=== PATIENT | male | born 1955 | race Caucasian/White ===

== ENCOUNTER 2016-03-04 14:21 | Emergency (ER) | payer OTHER ==
[~2016-03-04] VITALS: Ht 152.4 cm; Wt 65.0 kg
[~2016-03-04 14:21] MED LIST: CARAS PO; IBUP800T25 PO; LEVE-5 PO; METO10TA96 PO; PANT40TA4 PO
[2016-03-04 14:30] VITALS: Ht 152.4 cm; Wt 65.0 kg
[2016-03-04] MEDS ORDERED: FLUORESCEIN STRIP BOTH EYES ONE (15:30)
[2016-03-04] MEDS ORDERED: HYDROCODONE/APAP (10/325) TAB PO ONE (16:00)
[2016-03-04] MEDS ORDERED: ULT50 PO (16:27)
[2016-03-04] MEDS ORDERED: CETI5TAB20 PO (16:27)
[2016-03-04] MEDS ORDERED: VIGA BOTH EYES (16:27)
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
== END 2016-03-04 17:02 | disposition home or self-care (01) ==
LOC: FTE 14:21
DX: H57.8 Other specified disorders of eye and adnexa (principal); K14.0 Glossitis; Z87.891 Personal history of nicotine dependence
CPT/HCPCS: Z7610 ×2; 99284

== ENCOUNTER 2016-05-07 14:40 | Emergency (ER) | payer OTHER ==
[~2016-05-07] VITALS: Ht 167.6 cm; Wt 64.5 kg
[~2016-05-07 14:40] MED LIST changes: +CETI5TAB20 PO; +TRAM50TA2 PO; +VIGA BOTH EYES
[2016-05-07 14:47] VITALS: Ht 167.6 cm; Wt 64.5 kg
[2016-05-07] MEDS ORDERED: LIDO20SO19 MM (16:55)
[2016-05-07] MEDS ORDERED: IBUP400T22 PO (16:56)
[2016-05-07] MEDS ORDERED: BEN25 PO (16:56)
--- NOTE | 2016-05-07 17:00 | ERD ---
ER Documentation Chief Complaint Date/Time DATE: 05/07/16 TIME: 16:58 Chief Complaint MOUTH AND TONGUE SORE,DIFFICULTY SWALLOWING HPI This 60-year-old male complains of a sore on the left side of his tongue for the last week. He also has an itchy rash. Denies fevers, cough, shortness breath or chest pain. Denies tobacco use last alcohol use was 2 weeks ago. ROS All systems reviewed and are negative except as per history of present illness. Medications Home Meds Active Scripts Ibuprofen* (Motrin*) 400 Mg Tab, 400 MG PO Q6, #15 TAB Prov:DAO PIERCE MD 05/07/16 Diphenhydramine Hcl* (Benadryl*) 25 Mg Cap, 25 MG PO Q6, #15 CAP Prov:DAO PIERCE MD 05/07/16 Lidocaine (Lidocaine Viscous) 100 Ml Soln, 100 ML MM QID for 5 Days Prov:DAO PIERCE MD 05/07/16 Cetirizine Hcl* (Cetirizine Hcl*) 5 Mg Tablet, 5 MG PO DAILY, #14 TAB Prov:GOLD GARCIA PA-C 03/04/16 Tramadol HCl (Tramadol HCl) 50 Mg Tablet, 50 MG PO Q4 Y for PAIN, #20 TAB Prov:GOLD GARCIA PA-C 03/04/16 Moxifloxacin Hcl* (Vigamox*) 0.5% - 3 Ml Opht, 1 DROP BOTH EYES TID, #1 EA Prov:GOLD GARCIA PA-C 03/04/16 Ibuprofen* (Motrin*) 800 Mg Tab, 800 MG PO Q6H Y for PAIN AND OR ELEVATED TEMP, #30 TAB Prov:ANA BURNS MD 11/14/15 Levetiracetam* (Keppra*) 500 Mg Tablet, 500 MG PO BID for 30 Days, TAB 3 Refills Prov:AGGIE ZAMORA S. 10/04/15 Sucralfate* (Carafate*) 1 Gm/10 Ml Susp, 1 GM PO QID for 30 Days, 3 Refills Prov:AGGIE ZAMORA S. 10/04/15 Pantoprazole* (Pantoprazole*) 40 Mg Tablet.dr, 40 MG PO BID@ for 30 Days, 3 Refills Prov:AGGIE ZAMORA S. 10/04/15 Metoclopramide Hcl* (Metoclopramide Hcl*) 10 Mg Tablet, 10 MG PO AC MEALS for 30 Days, TAB 3 Refills Prov:AGGIE ZAMORA S. 10/04/15 Allergies Allergies: Coded Allergies: No Known Allergy (Unverified , 03/04/16) PMhx/Soc Medical and Surgical Hx: pt denies Surgical Hx History of Surgery: No Anesthesia Reaction: No Hx Neurological Disorder: No Hx Respiratory Disorders: No Hx Cardiac Disorders: No Hx Psychiatric Problems: Yes (depression) Hx Miscellaneous Medical Probl: No Hx Alcohol Use: Yes (drinks alcohol) Hx Substance Use: Yes (COCAINE) Hx Tobacco Use: Yes (previous smoker) Smoking Status: Former smoker Physical Exam Vitals Vital Signs Date Time Temp Pulse Resp B/P Pulse Ox O2 Delivery O2 Flow Rate FiO2 05/07/16 14:47 98.2 78 18 158/76 98 Physical Exam Const: [] Alert, ufc-bba-yjuhynhoi Head: Atraumatic Eyes: Normal Conjunctiva ENT: Normal External Ears, Nose and Mouth. There is a large aphthous ulcer on the lateral aspect the left side of his tongue. Airway is otherwise patent. Neck: Full range of motion..~ No meningismus. Resp: Clear to auscultation bilaterally Cardio: Regular rate and rhythm, no murmurs Abd: Soft, non tender, non distended. Normal bowel sounds Skin: No petechiae or purpura. There is a slight excoriated areas of wheals on the abdomen and a few X-rated papules on extremities. There is no warmth, erythema, induration or streaking or vesicles per Back: No midline or flank tenderness Ext: No cyanosis, or edema Neur: Awake and alert Psych: Normal Mood and Affect Procedures/MDM Patient presents with signs and symptoms of a acute aphthous ulcer on the left side of his tongue. He also has unspecified dermatitis or wheel type lesions. There is a may have a viral exanthem. No signs or symptoms to suggest life- threatening rashes, anaphylaxis, significant cellulitis or any other emergent causes of rash or aphthous ulcers. Patient is advised to see ENT for further evaluation for persistent oral lesions greater than 1-2 more weeks but otherwise is allow the next week to for a viral illness to resolve. He will be treated with Benadryl, ibuprofen and Viscous Lidocaine topically first time Departure Diagnosis: Primary Impression: Dermatitis Additional Impression: Acute pain of mouth Condition: Stable Patient Instructions: Aphthous Ulcer, Dermatitis, Non-Specific Referrals: NESHA COTTO MD,LAURA Landry MD Additional Instructions: Va al monzon doctor/ specialista para mas evaluacon PARA SYMPTOMAS MAS QUE UN O DOS semana MAS. posiblemente necesita autorizado de monzon doctor primario para specialista. Regresa para fiebre, o mas o nueva simptomas. DAO PIERCE MD May 07, 2016 17:00
[2016-05-07 17:16] VITALS: BP 138/74; PULSE 86; RESP 20; TEMP 98.3
== END 2016-05-07 17:17 | disposition home or self-care (01) ==
LOC: FTE 14:40
DX: L30.9 Dermatitis, unspecified (principal); Z87.891 Personal history of nicotine dependence
CPT/HCPCS: 99283

== ENCOUNTER 2016-05-10 16:22 | Emergency (ER) | payer OTHER ==
[~2016-05-10] VITALS: Ht 157.5 cm; Wt 65.0 kg
[~2016-05-10 16:22] MED LIST changes: +BEN25 PO; +IBUP400T22 PO; +LIDO20SO19 MM
[2016-05-10 16:25] VITALS: Ht 157.5 cm; Wt 65.0 kg
[2016-05-10] MEDS ORDERED: IBUP400T22 PO (17:31)
[2016-05-10] MEDS ORDERED: ORA20G7 BUCCAL (17:31)
--- NOTE | 2016-05-10 22:35 | ERD ---
ER Documentation Chief Complaint Date/Time DATE: 05/10/16 TIME: 22:33 Chief Complaint Complains of mouth sores HPI This is a 60-year-old male with a history of alcohol abuse presenting to the emergency room complaining of mouth ulcers for the past week. Patient states that he has been seen here 4 days ago and received ibuprofen however he states it is not resolving. Patient denies any fevers. Denies any other conditions ROS All systems reviewed and are negative except as per history of present illness. Medications Home Meds Active Scripts Benzocaine* (Orajel Maximum*) 1 Applic Gel, 1 APPLIC BUCCAL BID, #1 TUB Prov:KYLAH GARCIA PA-C 05/10/16 Ibuprofen* (Ibuprofen*) 400 Mg Tablet, 400 MG PO Q6H Y for PAIN, #30 TAB Prov:KYLAH GARCIA PA-C 05/10/16 Ibuprofen* (Motrin*) 400 Mg Tab, 400 MG PO Q6, #15 TAB Prov:DAO PIERCE MD 05/07/16 Diphenhydramine Hcl* (Benadryl*) 25 Mg Cap, 25 MG PO Q6, #15 CAP Prov:DAO PIERCE MD 05/07/16 Lidocaine (Lidocaine Viscous) 100 Ml Soln, 100 ML MM QID for 5 Days Prov:DAO PIERCE MD 05/07/16 Cetirizine Hcl* (Cetirizine Hcl*) 5 Mg Tablet, 5 MG PO DAILY, #14 TAB Prov:GOLD GARCIA PA-C 03/04/16 Tramadol HCl (Tramadol HCl) 50 Mg Tablet, 50 MG PO Q4 Y for PAIN, #20 TAB Prov:GOLD GARCIA PA-C 03/04/16 Moxifloxacin Hcl* (Vigamox*) 0.5% - 3 Ml Opht, 1 DROP BOTH EYES TID, #1 EA Prov:GOLD GARCIA PA-C 03/04/16 Ibuprofen* (Motrin*) 800 Mg Tab, 800 MG PO Q6H Y for PAIN AND OR ELEVATED TEMP, #30 TAB Prov:ANA BURNS MD 11/14/15 Levetiracetam* (Keppra*) 500 Mg Tablet, 500 MG PO BID for 30 Days, TAB 3 Refills Prov:AGGIE ZAMORA S. 10/04/15 Sucralfate* (Carafate*) 1 Gm/10 Ml Susp, 1 GM PO QID for 30 Days, 3 Refills Prov:AGGIE ZAMORA S. 10/04/15 Pantoprazole* (Pantoprazole*) 40 Mg Tablet.dr, 40 MG PO BID@06,18 for 30 Days, 3 Refills Prov:AGGIE ZAMORA S. 10/04/15 Metoclopramide Hcl* (Metoclopramide Hcl*) 10 Mg Tablet, 10 MG PO AC MEALS for 30 Days, TAB 3 Refills Prov:AGGIE ZAMORA S. 10/04/15 Allergies Allergies: Coded Allergies: No Known Allergy (Unverified , 03/04/16) PMhx/Soc History of Surgery: No Anesthesia Reaction: No Hx Neurological Disorder: No Hx Respiratory Disorders: No Hx Cardiac Disorders: No Hx Psychiatric Problems: Yes (depression) Hx Miscellaneous Medical Probl: No Hx Alcohol Use: Yes (drinks alcohol) Hx Substance Use: Yes (COCAINE) Hx Tobacco Use: Yes (previous smoker) Smoking Status: Current every day smoker Physical Exam Vitals Vital Signs Date Time Temp Pulse Resp B/P Pulse Ox O2 Delivery O2 Flow Rate FiO2 05/10/16 16:25 97.8 72 20 143/84 100 Physical Exam Const: [] Well-developed well-nourished no acute distress Head: Atraumatic Eyes: Normal Conjunctiva ENT: Normal External Ears, Nose and Multiple aphthous ulcers Neck: Full range of motion..~ No meningismus. Resp: Clear to auscultation bilaterally Cardio: Regular rate and rhythm, no murmurs Abd: Soft, non tender, non distended. Normal bowel sounds Skin: No petechiae or rashes Back: No midline or flank tenderness Ext: No cyanosis, or edema Neur: Awake and alert Psych: Normal Mood and Affect Procedures/MDM This is a 6-year-old male presenting to the emergency department complaining of mouth sores that are most consistent with aphthous ulcers for the past week, patient was here 4 days ago for the same complaint. I discussed with patient that the apthous ulcers do not heal quickly. I discussed to continue the ibuprofen and discussed lidocaine/ora-jel. I discussed the patient to follow- up with a dentist for further action management. Discussed return the ER for any worsening signs or symptoms. Patient understands and agrees with plan Departure Diagnosis: Primary Impression: Sore in mouth Condition: Stable Patient Instructions: When Your Child Has Mouth Sores, Tmj Syndrome Referrals: DOCTOR,NOT ON STAFF [facility] ([facility]) Usted se latham hecho un examen mdico de control que le indica que no est en fidel condicin que requiera tratamiento urgente en el Departamento de Emergencia. Un estudio ms profundo y el tratamiento de monzon condicin pueden esperar sin ningn riesgo hasta que usted sea atendida/o en el consultorio de monzon mdico o fidel cl lizzeth. Es responsabilidad suya arreglar fidel rosa elena para el seguimiento del juele. MANEJO DE CONDICIONES NO URGENTES EN EL FUTURO 1) Si usted tiene un mdico de atencin primaria: Usted debera llamar a monzon mdico de atencin primaria antes de venir al departamento de emergencia. Despus de las horas de consultorio, monzon doctor o monzon asociado/a est disponible por telfono. El mdico o enfermero de bert en el servicio telefnico puede asesorarle por kishan medio para atender el problema, o julee contrario se puede programar fidel rosa elena. 2) Si usted no tiene un mdico de atencin primaria: Llame al mdico o clnica de referencia que aparece abajo rossy las horas de consultorio para hacer fidel rosa elena para que le vean. CLINICAS: [facility] 655 [phone] [address] [facility] [phone] [address] [facility] [phone] [address] [facility] 132 [phone] [address] [facility] 580 [phone] [address] [facility] [phone] [place] [facility] ([facility] walk in clinic) Additional Instructions: Visite a monzon sharath hampton para un EXAMEN.Regrese a estas instalaciones si no se mejora miriam esperbamos o miriam le dijimos. [place] toda la medicina lilliana y miriam se le indic. Regrese a estas instalaciones si no se mejora miriam esperbamos o miriam le dijimos. KYLAH GARCIA PA-C May 10, 2016 22:35
== END 2016-05-10 18:03 | disposition home or self-care (01) ==
LOC: FTE 16:22
DX: K13.79 Other lesions of oral mucosa (principal); F17.210 Nicotine dependence, cigarettes, uncomplicated
CPT/HCPCS: 99283

== ENCOUNTER 2016-07-14 23:06 | Emergency (ER) | payer BC, OTHER ==
[~2016-07-14] VITALS: Ht 157.5 cm; Wt 61.3 kg
[~2016-07-14 23:06] MED LIST changes: +ORA20G7 BUCCAL
[2016-07-14 23:17] VITALS: Ht 157.5 cm; Wt 61.3 kg
--- NOTE | 2016-07-15 01:32 | ERD ---
ER Documentation Chief Complaint Date/Time DATE: 07/15/16 TIME: 01: Chief Complaint GLORIA. EYE PAIN AND TINGLING W/ REDNESS X1 HR. BIB RA 881 HPI Patient is complaining of bilateral eye pain and irritation with itchiness and redness. Also states he has had some purulent drainage. Denies any visual changes. Denies being diabetic. This is been going on for just an hour. Denies any pain with eye movement. Denies fever. Denies cough. ROS All systems reviewed and are negative except as per history of present illness. Medications Home Meds Active Scripts Erythromycin* (Erythromycin* Ophthalmic) 1 Applic Oint, 1 APPLIC BOTH EYES QID for 7 Days, EA Prov:ASAD LESLIE PA-C 07/15/16 Benzocaine* (Orajel Maximum*) 1 Applic Gel, 1 APPLIC BUCCAL BID, #1 TUB Prov:KYLAH GARCIA PA-C 05/10/16 Ibuprofen* (Ibuprofen*) 400 Mg Tablet, 400 MG PO Q6H Y for PAIN, #30 TAB Prov:KYLAH GARCIA PA-C 05/10/16 Ibuprofen* (Motrin*) 400 Mg Tab, 400 MG PO Q6, #15 TAB Prov:DAO PIERCE MD 05/07/16 Diphenhydramine Hcl* (Benadryl*) 25 Mg Cap, 25 MG PO Q6, #15 CAP Prov:DAO PIERCE MD 05/07/16 Lidocaine (Lidocaine Viscous) 100 Ml Soln, 100 ML MM QID for 5 Days Prov:DAO PIERCE MD 05/07/16 Cetirizine Hcl* (Cetirizine Hcl*) 5 Mg Tablet, 5 MG PO DAILY, #14 TAB Prov:GOLD GARCIA PA-C 03/04/16 Tramadol HCl (Tramadol HCl) 50 Mg Tablet, 50 MG PO Q4 Y for PAIN, #20 TAB Prov:GOLD GACRIA PA-C 03/04/16 Moxifloxacin Hcl* (Vigamox*) 0.5% - 3 Ml Opht, 1 DROP BOTH EYES TID, #1 EA Prov:GOLD GARCIA PA-C 03/04/16 Ibuprofen* (Motrin*) 800 Mg Tab, 800 MG PO Q6H Y for PAIN AND OR ELEVATED TEMP, #30 TAB Prov:ANA BURNS MD 11/14/15 Levetiracetam* (Keppra*) 500 Mg Tablet, 500 MG PO BID for 30 Days, TAB 3 Refills Prov:DENGAGGIE S. 10/04/15 Sucralfate* (Carafate*) 1 Gm/10 Ml Susp, 1 GM PO QID for 30 Days, 3 Refills Prov:SERAAGGIE S. 10/04/15 Pantoprazole* (Pantoprazole*) 40 Mg Tablet.dr, 40 MG PO BID@,18 for 30 Days, 3 Refills Prov:SERAAGGIE S. 10/04/15 Metoclopramide Hcl* (Metoclopramide Hcl*) 10 Mg Tablet, 10 MG PO AC MEALS for 30 Days, TAB 3 Refills Prov:JEFF ZAMORAP S. 10/04/15 Allergies Allergies: Coded Allergies: No Known Allergy (Unverified , 03/04/16) PMhx/Soc History of Surgery: No Anesthesia Reaction: No Hx Neurological Disorder: No Hx Respiratory Disorders: No Hx Cardiac Disorders: No Hx Psychiatric Problems: Yes (depression) Hx Miscellaneous Medical Probl: No Hx Alcohol Use: Yes (drinks alcohol) Hx Substance Use: Yes (COCAINE) Hx Tobacco Use: Yes (previous smoker) Physical Exam Vitals Vital Signs Date Time Temp Pulse Resp B/P Pulse Ox O2 Delivery O2 Flow Rate FiO2 07/14/16 23:17 98.0 85 20 137/84 98 Physical Exam General: well developed, well nourished, alert, nontoxic, no distress Head: normocephalic, atraumatic Eyes: PERRL, normal conjunctiva, extraocular movements intact Neck: Supple, nontender, no lymphadenopathy, no midline tenderness Oropharynx: no tonsilar erythema or edema, uvula midline, no exudates, no kissing tonsils, no drooling Respiratory: Clear to auscaultation bilaterally, speaks in full sentences, no use of accesory muscles or labored breathing, no rales, ronchi, or wheezing Cardiovascular: RRR, No murmurs Procedures/MDM Patient is nondiabetic. Vital signs are within normal limits. Patient presents with eye twitching and irritation with itchiness in the bilateral eyes and also states he has had some purulent drainage from the eye and redness in his bilateral eyes. Low suspicion for ruptured globe, retinal detachment, acute angle closure glaucoma, deep space infection, iritis, traumatic hyphema, conjunctivitis, subconjunctival hemorrhage, corneal abrasion, infectious keratitis, corneal ulcer, pterygium, superficial keratitis, hypopyon, blepharitis, episcleritis, hordeolum, chalazion, or other emergent conditions. Patient discharged with outpatient ophthalmology follow-up and erythromycin ophthalmic ointment. Recommended this patient follow up with her primary care doctor within 48 hours or return to the emergency room for any worsening of symptoms. However this time I do believe there is suitable for outpatient management. I answered all their questions and they agreed with the plan and were discharged home. Departure Diagnosis: Primary Impression: Eye problem Condition: Stable ASAD LESLIE PA-C July 15, 2016 01:32
[2016-07-15] MEDS ORDERED: ERYTOPOI BOTH EYES (01:42)
== END 2016-07-15 03:06 | disposition home or self-care (01) ==
LOC: FTE 23:06
DX: H57.13 Ocular pain, bilateral (principal)
CPT/HCPCS: 99283

== ENCOUNTER 2016-07-29 03:33 | Emergency (ER) | payer BC ==
[~2016-07-29] VITALS: Ht 162.6 cm; Wt 55.0 kg
[~2016-07-29 03:33] MED LIST changes: +ERYTOPOI BOTH EYES
[2016-07-29 03:38] VITALS: Ht 162.6 cm; Wt 55.0 kg
[2016-07-29 04:20] LABS: ADD SCAN DIFF NO
--- NOTE | 2016-07-29 04:36 | RADRPT ---
PROCEDURE: CT BRAIN WITHOUT CONTRAST CLINICAL INDICATION: 60-year-old male with headaches. TECHNIQUE: The study was performed utilizing [employer] VCT 64-slice CT scanner. Direct axial sections were obtained from the foramen magnum to the vertex without the use of intravenous contrast material. Sagittal and coronal reformations were obtained. Sagittal and coronal reformations were obtained. One or more the following dose reduction techniques were utilized: automated exposure cont rol, adjustment of the mA and/or kV according to patient's size or use of iterative reconstruction t echnique. The images were viewed on a PACS workstation. CTD/vol = 44.8 mGy; Total Exam DLP = 720.2 mGy-cm. COMPARISON: CT brain November 14, 2015. FINDINGS: There has been a prior right frontal craniotomy. There is mild focal underlying right temporal, rig ht frontal and right parietal encephalomalacia as previously visualized. There is apgv-ih-jssorpmh prominence of the sulci and cisternal spaces consistent with volume loss with compensatory ventricul ar enlargement. The ventricular configuration is without significant interval change. There is no e vidence for mass effect or midline shift. There are periventricular and deep white matter areas of decreased density consistent with microangiopathic ischemic changes. There is a small old lacunar in farct within the right basal ganglia. There is no evidence for acute intra or extra-axial blood. The partially visualized paranasal sinuses and mastoid air cells are without significant abnormal soft tissue. IMPRESSION: 1. Status post right frontal craniotomy with underlying focal right temporal, frontal and parietal encephalomalacia without significant interval change. 2. Pvxi-cq-ckmkfhwu diffuse volume loss. 3. Microangiopathic ischemic changes. 4. 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 .Edvin Berry MD, Date Time Electronically viewed and signed by .Edvin Berry MD, MD on 07/29/2016 04:36 .M/
--- NOTE | 2016-07-29 04:37 | RADRPT ---
AMENDMENT: 07/29/2016 4:35:07 AM Edvin Berry MD CLINICAL INDICATION: 60-year-old male with chest pain and headaches. PROCEDURE: CHEST - 1 VIEW CLINICAL INDICATION: 6-year-old male with chest pain and headaches. TECHNIQUE: A single frontal AP portable view of the chest was performed. The images were reviewed on a PACS workstation. COMPARISON: Chest x-ray December 29, 2015. FINDINGS: The cardiomediastinal silhouette is within normal limits without significant interval change. There is no evidence for an infiltrate. There is no evidence for congestive heart failure. There is no e vidence for pneumothorax. The osseous structures are intact. IMPRESSION: No evidence for active cardiopulmonary disease. .Edvin Berry MD, Date Time Electronically viewed and signed by .Edvin Berry MD, on 07/29/2016 04:37 .M/
[2016-07-29 04:39] LABS: ABNORMAL IP MESSAGE 1; BASOPHIL # 0.2 10^3/ul (0.0-0.1); BASOPHILS % 1.3 % (0.0-2.0); EOSINOPHILS # 3.1 10^3/ul (0.0-0.5); EOSINOPHILS % 26.9 % (0.0-7.0); HEMATOCRIT 34.3 % (42.0-52.0); HEMOGLOBIN 10.8 g/dl (14.0-18.0); LYMPHOCYTES # 2.7 10^3/ul (0.8-2.9); LYMPHOCYTES % 23.2 % (15.0-51.0); MEAN CORPUSCULAR HEMOGLOBIN 25.5 pg (29.0-33.0); MEAN CORPUSCULAR HGB CONC 31.5 g/dl (32.0-37.0); MEAN CORPUSCULAR VOLUME 80.9 fl (82.0-101.0); MEAN PLATELET VOLUME 10.7 fl (7.4-10.4); MONOCYTE # 1.1 10^3/ul (0.3-0.9); MONOCYTES % 9.1 % (0.0-11.0); NEUTROPHIL # 4.5 10^3/ul (1.6-7.5); NEUTROPHILS % 39.3 % (39.0-77.0); PLATELET COUNT 352 10^3/UL (140-415); RED BLOOD COUNT 4.24 10^6/ul (4.70-6.10); RED CELL DISTRIBUTION WIDTH 18.4 % (11.5-14.5); WHITE BLOOD COUNT 11.5 10^3/ul (4.8-10.8)
[2016-07-29 04:42] LABS: INR 1.02; PROTIME 13.4 Sec (12.2-14.2)
[2016-07-29 04:43] LABS: PARTIAL THROMBOPLASTIN TIME 22.2 Sec (25.0-35.0)
[2016-07-29 04:50] LABS: CALCIUM 9.2 mg/dl (8.4-10.2); CREATININE 0.63 mg/dl (0.61-1.24); POTASSIUM 3.7 mmol/L (3.5-5.1)
[2016-07-29 05:01] LABS: TROPONIN-I 0.019 ng/ml (0.00-0.12)
--- NOTE | 2016-07-29 05:22 | ERD ---
ER Documentation Chief Complaint Date/Time DATE: 07/29/16 TIME: 05:19 Chief Complaint dizziness this evening, unable to provide more details. no injury. HPI This is a 6-year-old male says he feels weak over the past few days. Said he felt a little bit "dizzy". Denies any loss of consciousness. Denies any chest pain. Denies any palpitations. Denies any focal neurological complaints. Denies any current issues. ROS All systems reviewed and are negative except as per history of present illness. Medications Home Meds Active Scripts Metoclopramide Hcl* (Metoclopramide Hcl*) 10 Mg Tablet, 10 MG PO AC MEALS for 30 Days, TAB 3 Refills Prov:JEFF ZAMORARicky Knapp 10/04/15 Discontinued Scripts Erythromycin* (Erythromycin* Ophthalmic) 1 Applic Oint, 1 APPLIC BOTH EYES QID for 7 Days, EA Prov:ASAD LESLIE PA-C 07/15/16 Benzocaine* (Orajel Maximum*) 1 Applic Gel, 1 APPLIC BUCCAL BID, #1 TUB Prov:KYLAH GARCIA PA-C 05/10/16 Ibuprofen* (Ibuprofen*) 400 Mg Tablet, 400 MG PO Q6H Y for PAIN, #30 TAB Prov:KYLAH GARCIA PA-C 05/10/16 Ibuprofen* (Motrin*) 400 Mg Tab, 400 MG PO Q6, #15 TAB Prov:DAO PIERCE MD 05/07/16 Diphenhydramine Hcl* (Benadryl*) 25 Mg Cap, 25 MG PO Q6, #15 CAP Prov:DAO PIERCE MD 05/07/16 Lidocaine (Lidocaine Viscous) 100 Ml Soln, 100 ML MM QID for 5 Days Prov:DAO PIERCE MD 05/07/16 Cetirizine Hcl* (Cetirizine Hcl*) 5 Mg Tablet, 5 MG PO DAILY, #14 TAB Prov:GOLD GARCIA PA-C 03/04/16 Tramadol HCl (Tramadol HCl) 50 Mg Tablet, 50 MG PO Q4 Y for PAIN, #20 TAB Prov:GOLD GARCIA PA-C 03/04/16 Moxifloxacin Hcl* (Vigamox*) 0.5% - 3 Ml Opht, 1 DROP BOTH EYES TID, #1 EA Prov:GOLD GARCIA PA-C 03/04/16 Ibuprofen* (Motrin*) 800 Mg Tab, 800 MG PO Q6H Y for PAIN AND OR ELEVATED TEMP, #30 TAB Prov:ANA BURNS MD 11/14/15 Levetiracetam* (Keppra*) 500 Mg Tablet, 500 MG PO BID for 30 Days, TAB 3 Refills Prov:RAHI,AGGIE S. 10/04/15 Sucralfate* (Carafate*) 1 Gm/10 Ml Susp, 1 GM PO QID for 30 Days, 3 Refills Prov:RAHI,AGGIE S. 10/04/15 Pantoprazole* (Pantoprazole*) 40 Mg Tablet.dr, 40 MG PO BID@,18 for 30 Days, 3 Refills Prov:RAHI,AGGIE S. 10/04/15 Allergies Allergies: Coded Allergies: No Known Allergy (Unverified , 03/04/16) PMhx/Soc Medical and Surgical Hx: pt denies Medical Hx, pt denies Surgical Hx History of Surgery: No Anesthesia Reaction: No Hx Neurological Disorder: No Hx Respiratory Disorders: No Hx Cardiac Disorders: No Hx Psychiatric Problems: Yes (depression) Hx Miscellaneous Medical Probl: No Hx Alcohol Use: Yes (beer daily; no intake x1mo) Hx Substance Use: No (previous 2yrs ago) Hx Tobacco Use: No Smoking Status: Never smoker Physical Exam Vitals Vital Signs Date Time Temp Pulse Resp B/P Pulse Ox O2 Delivery O2 Flow Rate FiO2 07/29/16 03:38 72 18 136/83 99 Physical Exam Const: [] Head: Atraumatic Eyes: Normal Conjunctiva ENT: Normal External Ears, Nose and Mouth. Neck: Full range of motion..~ No meningismus. Resp: Clear to auscultation bilaterally Cardio: Regular rate and rhythm, no murmurs Abd: Soft, non tender, non distended. Normal bowel sounds Skin: No petechiae or rashes Back: No midline or flank tenderness Ext: No cyanosis, or edema Neur: Awake and alert Psych: Normal Mood and Affect Result Diagram: 07/29/1640907/29/16409 Results 24 hrs Laboratory Tests Test 07/29/16 04:10 White Blood Count 11.510^3/ul Red Blood Count 4.2410^6/ul Hemoglobin 10.8g/dl Hematocrit 34.3% Mean Corpuscular Volume 80.9fl Mean Corpuscular Hemoglobin 25.5pg Mean Corpuscular Hemoglobin Concent 31.5g/dl Red Cell Distribution Width 18.4% Platelet Count 16371^3/UL Mean Platelet Volume 10.7fl Neutrophils % 39.3% Lymphocytes % 23.2% Monocytes % 9.1% Eosinophils % 26.9% Basophils % 1.3% Nucleated Red Blood Cells % 0.0/100WBC Neutrophils # 4.510^3/ul Lymphocytes # 2.710^3/ul Monocytes # 1.110^3/ul Eosinophils # 3.110^3/ul Basophils # 0.210^3/ul Nucleated Red Blood Cells # 0.010^3/ul Prothrombin Time 13.4Sec Prothrombin Time Ratio 1.0 INR International Normalized Ratio 1.02 Activated Partial Thromboplast Time 22.2Sec Sodium Level 140mmol/L Potassium Level 3.7mmol/L Chloride Level 107mmol/L Carbon Dioxide Level 24mmol/L Anion Gap 13 Blood Urea Nitrogen 6mg/dl Creatinine 0.63mg/dl Glucose Level 88mg/dl Calcium Level 9.2mg/dl Troponin I 0.019ng/ml Procedures/MDM EKG: Rate/Rhythm: [Normal Sinus Rhythm] QRS, ST, T-waves: [No changes consistent w/ acute ischemia] Impression: [No evidence of ischemia or arrhythmia] Chest X-ray 1V Interpreted by me: Soft Tissue: No acute abnormalities Bones: No acute abnormalities Mediastinum/Cardiac Silhouette/Lungs: [No acute abnormalities] Medical decision-makin-year-old male comes with generalized weakness that is since resolved. At this point well-appearing. No evidence of any infection. No evidence of any cardiac involvement. At this point patient stable for outpatient management and feels that he is stable to go home. Full workup negative. Full negative neurological exam serially here in the emergency department as well. Departure Diagnosis: Primary Impression: Dizziness Condition: Stable SYDNEY URIAS Jul 29, 2016 05:22
[2016-07-29 05:54] VITALS: BP 138/92; PULSE 89; RESP 18
[2016-07-29] MEDS ORDERED: MECL12.574 PO (12:58)
== END 2016-07-29 05:59 | disposition home or self-care (01) ==
LOC: E/R 03:33
DX: R42 Dizziness and giddiness (principal); R40.2252 Coma scale, best verbal response, oriented, at arrival to emergency department; R07.9 Chest pain, unspecified; R40.2142 Coma scale, eyes open, spontaneous, at arrival to emergency department; R40.2362 Coma scale, best motor response, obeys commands, at arrival to emergency department
CPT/HCPCS: 36415; 70450; 71010; 80048; 84484; 85025; 85610; 85730; 93005

== ENCOUNTER 2016-07-29 11:59 | Emergency (ER) | payer BC ==
[~2016-07-29] VITALS: Ht 152.4 cm; Wt 63.5 kg
[2016-07-29 12:14] VITALS: Ht 152.4 cm; Wt 63.5 kg
[2016-07-29] MEDS ORDERED: MECLIZINE 12.5 MG TAB PO ONE (12:30)
[2016-07-29] MEDS ORDERED: MECL12.574 PO (12:58)
[2016-07-29 13:22] VITALS: BP 121/68; PULSE 71; RESP 18; TEMP 98.5
--- NOTE | 2016-07-29 15:30 | ERD ---
ER Documentation Chief Complaint Date/Time DATE: 07/29/16 TIME: 15:28 Chief Complaint pt here for dizziness x 1 days, was seen and dc; cont to be dizzy HPI Patient is a 60-year-old male with no medical problems who presents with dizziness. The patient says that his dizziness started yesterday. It is constant. He denies falls or trauma. He has had no treatment as of yet. He had subjective fever but did not check his temperature. His last alcohol use was 3 days ago. He was seen this morning for similar symptoms. Upon review of old medical records he has multiple visits to the ER since 2013. Review of the emergency department information exchange system shows visits to 2 separate emergency departments. He does not currently have a primary doctor. ROS All systems reviewed and are negative except as per history of present illness. Medications Home Meds Active Scripts Meclizine Hcl* (Antivert*) 12.5 Mg Tab, 12.5 MG PO Q6H Y for DIZZINESS, #20 TAB Prov:CHRIS GONZALEZ MD 07/29/16 Metoclopramide Hcl* (Metoclopramide Hcl*) 10 Mg Tablet, 10 MG PO AC MEALS for 30 Days, TAB 3 Refills Prov:SERAANGELICAAGGIE S. 10/04/15 Discontinued Scripts Erythromycin* (Erythromycin* Ophthalmic) 1 Applic Oint, 1 APPLIC BOTH EYES QID for 7 Days, EA Prov:ASAD LESLIE PA-C 07/15/16 Benzocaine* (Orajel Maximum*) 1 Applic Gel, 1 APPLIC BUCCAL BID, #1 TUB Prov:KYLAH GARCIA PA-C 05/10/16 Ibuprofen* (Ibuprofen*) 400 Mg Tablet, 400 MG PO Q6H Y for PAIN, #30 TAB Prov:KYLAH GARCIA PA-C 05/10/16 Ibuprofen* (Motrin*) 400 Mg Tab, 400 MG PO Q6, #15 TAB Prov:DAO PIERCE MD 05/07/16 Diphenhydramine Hcl* (Benadryl*) 25 Mg Cap, 25 MG PO Q6, #15 CAP Prov:DAO PIERCE MD 05/07/16 Lidocaine (Lidocaine Viscous) 100 Ml Soln, 100 ML MM QID for 5 Days Prov:DAO PIERCE MD 05/07/16 Cetirizine Hcl* (Cetirizine Hcl*) 5 Mg Tablet, 5 MG PO DAILY, #14 TAB Prov:GOLD GARCIA PA-C 03/04/16 Tramadol HCl (Tramadol HCl) 50 Mg Tablet, 50 MG PO Q4 Y for PAIN, #20 TAB Prov:GOLD GARCIA PA-C 03/04/16 Moxifloxacin Hcl* (Vigamox*) 0.5% - 3 Ml Opht, 1 DROP BOTH EYES TID, #1 EA Prov:GOLD GARCIA PA-C 03/04/16 Ibuprofen* (Motrin*) 800 Mg Tab, 800 MG PO Q6H Y for PAIN AND OR ELEVATED TEMP, #30 TAB Prov:ANA BURNS MD 11/14/15 Levetiracetam* (Keppra*) 500 Mg Tablet, 500 MG PO BID for 30 Days, TAB 3 Refills Prov:AGGIE ZAMORA S. 10/04/15 Sucralfate* (Carafate*) 1 Gm/10 Ml Susp, 1 GM PO QID for 30 Days, 3 Refills Prov:RAJEFF VILCHISP S. 10/04/15 Pantoprazole* (Pantoprazole*) 40 Mg Tablet.dr, 40 MG PO BID@06,18 for 30 Days, 3 Refills Prov:RAANGELICA VILCHISAGGIE S. 10/04/15 Allergies Allergies: Coded Allergies: No Known Allergy (Unverified , 03/04/16) PMhx/Soc History of Surgery: No Anesthesia Reaction: No Hx Neurological Disorder: No Hx Respiratory Disorders: No Hx Cardiac Disorders: No Hx Psychiatric Problems: Yes (depression) Hx Miscellaneous Medical Probl: No Hx Alcohol Use: Yes (beer daily; no intake x1mo) Hx Substance Use: No (previous 2yrs ago) Hx Tobacco Use: No Smoking Status: Current some day smoker FmHx Family History: No diabetes Physical Exam Vitals Vital Signs Date Time Temp Pulse Resp B/P Pulse Ox O2 Delivery O2 Flow Rate FiO2 07/29/16 13:22 98.5 71 18 121/68 98 Room Air 07/29/16 12:14 98.7 81 16 136/76 97 Physical Exam Const: No acute distress Head: Atraumatic Eyes: Normal Conjunctiva ENT: Normal External Ears, Nose and Mouth. Neck: Full range of motion..~ No meningismus. Resp: Clear to auscultation bilaterally Cardio: Regular rate and rhythm, no murmurs Abd: Soft, non tender, non distended. Normal bowel sounds Skin: No petechiae or rashes Back: No midline or flank tenderness Ext: No cyanosis, or edema Neur: Awake and alert, no slurred speech, no pronator drift, strength is 5 out of 5 in the upper and lower extremities bilaterally, cranial nerves II through XII are intact Psych: Normal Mood and Affect Results 24 hrs Laboratory Tests Test 07/29/16 12:41 Bedside Glucose 94mg/dL Current Medications Medications (Trade) Dose Ordered Sig/Rosalia Route PRN Reason Start Time Stop Time Status Last Admin Dose Admin Meclizine HCl (Antivert) 25 mg ONCE ONCE PO 07/29/16 12:30 07/29/16 12:31 DC 07/29/16 12:45 Procedures/MDM EKG read by me: Rate/Rhythm: Regular rate and rhythm at a normal rate Intervals: Normal Impression: No evidence of ischemia or arrhythmia Accu-Chek is normal. Patient is a 60-year-old male with no medical problems who presents with dizziness. The symptoms started yesterday and have been constant. At this point I doubt stroke, intracranial hemorrhage, or intracranial mass. The patient has a normal neurologic exam. Accu-Chek and EKG showed no signs of ischemia or hypoglycemia. At this point I believe outpatient management is appropriate but the patient will need to follow-up with the local clinics for reevaluation within 24-48 hours. He can return for any worsening symptoms. He was given meclizine for symptomatically relief. Departure Diagnosis: Primary Impression: Dizziness Condition: Fair Patient Instructions: Dizziness, Unk Cause [facility]errals: [facility] Usted se latham hecho un examen mdico de control que le indica que no est en fidel condicin que requiera tratamiento urgente en el Departamento de Emergencia. Un estudio ms profundo y el tratamiento de monzon condicin pueden esperar sin ningn riesgo hasta que usted sea atendida/o en el consultorio de monzon mdico o fidel cl lizzeth. Es responsabilidad suya arreglar fidel yadira para el seguimiento del julee. MANEJO DE CONDICIONES NO URGENTES EN EL FUTURO 1) Si usted tiene un mdico de atencin primaria: Usted debera llamar a monzon mdico de atencin primaria antes de venir al departamento de emergencia. Despus de las horas de consultorio, monzon doctor o monzon asociado/a est disponible por telfono. El mdico o enfermero de bert en el servicio telefnico puede asesorarle por kishan medio para atender el problema, o julee contrario se puede programar fidel yadira. 2) Si usted no tiene un mdico de atencin primaria: Llame al mdico o clnica de referencia que aparece abajo rossy las horas de consultorio para hacer fidel yadira para que le vean. CLINICAS: [facility] [phone] [address] [facility] [phone] [address] [facility]. [facility] [phone] [address] [facility]. [place] [id number] [phone] [facility]. [place] [id number] [phone] [facility]. [phone] [address] Additional Instructions: Llame al doctor MAANA y yduith fidel YADIRA PARA DENTRO DE 1-2 GALLEGOS.Dgale a la secretaria que nosotros le instruimos hacer esta yadira.Avise o llame si monzon condicin se empeora antes de la yadira. Regresa aqui si peor o no mejor. CHRIS GONZALEZ MD Jul 29, 2016 15:30
== END 2016-07-29 13:23 | disposition home or self-care (01) ==
LOC: E/R 11:59
DX: R42 Dizziness and giddiness (principal); F17.210 Nicotine dependence, cigarettes, uncomplicated
CPT/HCPCS: 82962; 93005; Z7610

== ENCOUNTER 2016-08-03 08:05 | Emergency (ER) | payer BC ==
[~2016-08-03] VITALS: Wt 62.5 kg
[~2016-08-03 08:05] MED LIST changes: -BEN25 PO; -CARAS PO; -CETI5TAB20 PO; -ERYTOPOI BOTH EYES; -IBUP400T22 PO; -IBUP800T25 PO; -LEVE-5 PO; -LIDO20SO19 MM; +MECL12.574 PO; -ORA20G7 BUCCAL; -PANT40TA4 PO; -TRAM50TA2 PO; -VIGA BOTH EYES
[2016-08-03] MEDS ORDERED: ORA20G7 BUCCAL (09:20)
--- NOTE | 2016-08-03 10:50 | ERD ---
ER Documentation Chief Complaint Date/Time DATE: 08/03/16 TIME: 10:42 Chief Complaint RECHECK TONGUE HPI 6-year-old male patient with a past medical history of alcohol abuse, diverticulitis, aphthous ulcer presents to the ED complaining of the same abscess ulcer on his left side of the tongue. Reports that his teeth are sharp and feels like it is cutting the side of his tongue. States that he tried to see a dentist but they did not prescribe him any medications that helped. States that he has not tried the Orajel that was prescribed to him in April 2016. Denies any fever, chills, dysphagia, odynophagia, nausea, vomiting, chest pain, shortness of breath, dyspnea on exertion. ROS All systems reviewed and are negative except as per history of present illness. Medications Home Meds Active Scripts Benzocaine* (Orajel Maximum*) 1 Applic Gel, 1 APPLIC BUCCAL BID, #1 TUB Prov:GOLD GARCIA PA-C 08/03/16 Meclizine Hcl* (Antivert*) 12.5 Mg Tab, 12.5 MG PO Q6H Y for DIZZINESS, #20 TAB Prov:CHRIS GONZALEZ MD 07/29/16 Metoclopramide Hcl* (Metoclopramide Hcl*) 10 Mg Tablet, 10 MG PO AC MEALS for 30 Days, TAB 3 Refills Prov:AGGIE ZAMORA 10/04/15 Allergies Allergies: Coded Allergies: No Known Allergy (Unverified , 03/04/16) PMhx/Soc History of Surgery: No Anesthesia Reaction: No Hx Neurological Disorder: No Hx Respiratory Disorders: No Hx Cardiac Disorders: No Hx Psychiatric Problems: Yes (depression) Hx Miscellaneous Medical Probl: No Hx Alcohol Use: Yes (beer daily; no intake x1mo) Hx Substance Use: No (previous 2yrs ago) Hx Tobacco Use: No Smoking Status: Never smoker Physical Exam Vitals Vital Signs Date Time Temp Pulse Resp B/P Pulse Ox O2 Delivery O2 Flow Rate FiO2 08/03/16 08:09 97.9 74 17 139/75 97 Physical Exam Const: Evh-kso-siqoinbig, well-nourished. In no acute distress. Head: Atraumatic, normocephalic Eyes: Normal Conjunctiva without injection. No purulent discharge. PERRL. EOMI ENT: Normal external ear. Ear canal without erythema. Tympanic membrane pearly stringer without effusion or bulging. Nasal canal clear with normal turbinates. Moist oropharynx without tonsillar exudates. Non-erythematous pharynx. Aphthous ulcer on the lateral aspect of her left side of the tongue. Uvula midline. No drooling. No trismus. Neck: Full range of motion. No meningismus. No cervical lymphadenopathy. Resp: Clear to auscultation bilaterally. No wheezing, rhonchi, rales, or crackles. No accessory muscle use. No retractions. Cardio: Regular rate and rhythm. No murmurs, rubs or gallops. Skin: No petechiae or rashes Ext: No cyanosis, or edema. Neur: Awake and alert. Cranial Nerves II-VII intact. Normal gait and coordination. Psych: Normal Mood and Affect Procedures/MDM This is a 60-year-old male patient with a past medical history of aphthous ulcer , diverticulitis, alcohol abuse presents to the ED complaining of the same aphthous ulcer on lateral aspect of his tongue. Patient is afebrile and nontoxic -appearing. Patient has normal vital signs. Patient at this time is appropriate for outpatient management. Orajel will be prescribed for patient since he has not tried this medication for pain relief. Patient was strictly instructed to follow-up with a dentist and a resource has been given to patient. Patient's physical exam include lungs which were clear to auscultation and a normal pulse oximetry. Bilateral ears pearly vallejo. No tenderness to palpation of tragus or mastoid. Low suspicion for mastoiditis, otitis externa, otitis media. Patient is speaking in full sentences. There is a low suspicion for strep pharyngitis, pneumonia, epiglottitis, croup, sinusitis, peritonsillar abscess, Chris's angina, dental abscess, retropharyngeal abscess , meningitis, sepsis, acute abdomen or other emergent conditions. Discharge medications: Orajel Follow up with primary care physician in 1-2 days. Instructed patient to return to the ED sooner for any worsening symptoms. Patient's questions were answered. Patient understood and agreed with discharge plan. Patient discharged stable. Departure Diagnosis: Primary Impression: Aphthous ulcer of tongue Condition: Stable Patient Instructions: Aphthous Ulcer, Canker Sore (Child) Referrals: [facility] YOU HAVE RECEIVED A MEDICAL SCREENING EXAM AND THE RESULTS INDICATE THAT YOU DO NOT HAVE A CONDITION THAT REQUIRES URGENT TREATMENT IN THE EMERGENCY DEPARTMENT. FURTHER EVALUATION AND TREATMENT OF YOUR CONDITION CAN WAIT UNTIL YOU ARE SEEN IN YOUR DOCTORS OFFICE WITHIN THE NEXT 1-2 DAYS. IT IS YOUR RESPONSIBILITY TO MAKE AN APPOINTMENT FOR FOLOW-UP CARE. IF YOU HAVE A PRIMARY DOCTOR --you should call your primary doctor and schedule an appointment IF YOU DO NOT HAVE A PRIMARY DOCTOR YOU CAN CALL OUR PHYSICIAN REFERRAL HOTLINE AT IF YOU CAN NOT AFFORD TO SEE A PHYSICIAN YOU CAN CHOSE FROM THE FOLLOWING [facility] [address] [facility] [address] [facility] [address] [facility] [address] [facility] [address] [facility] [address] [facility]. [facility]. [address] [facility]. [facility] YOU HAVE RECEIVED A MEDICAL SCREENING EXAM AND THE RESULTS INDICATE THAT YOU DO NOT HAVE A CONDITION THAT REQUIRES URGENT TREATMENT IN THE EMERGENCY DEPARTMENT. FURTHER EVALUATION AND TREATMENT OF YOUR CONDITION CAN WAIT UNTIL YOU ARE SEEN IN YOUR DOCTORS OFFICE WITHIN THE NEXT 1-2 DAYS. IT IS YOUR RESPONSIBILITY TO MAKE AN APPOINTMENT FOR FOLOW-UP CARE. IF YOU HAVE A PRIMARY DOCTOR --you should call your primary doctor and schedule and appointment IF YOU DO NOT HAVE A PRIMARY DOCTOR YOU CAN CALL OUR PHYSICIAN REFERRAL HOTLINE AT . IF YOU CAN NOT AFFORD TO SEE A PHYSICIAN YOU CAN CHOSE FROM THE FOLLOWING [facility] INSTITUTIONS: [facility] [address] [place] [address] [facility] [address] [place] [address] [facility] [address] [place] [address] [facility] URGENT CARE/SPECIALTIES Additional Instructions: Seguimiento con el dentista maana para evaluacin adicional y tratamiento. aplicar el oragel miriam se indica en la receta sobre la lcera. Avise o llame si monzon condicin se empeora antes de la rosa elena. Regresa aqui si peor o no mejor. GLOD GARCIA PA-C Aug 03, 2016 10:50 IF YOU HAVE A PRIMARY DOCTOR --you should call your primary doctor and schedule and appointment IF YOU DO NOT HAVE A PRIMARY DOCTOR YOU CAN CALL OUR PHYSICIAN REFERRAL HOTLINE AT . IF YOU CAN NOT AFFORD TO SEE A PHYSICIAN YOU CAN CHOSE FROM THE FOLLOWING [facility] IN[facility]IONS: [facility] [address] [place] [address] [facility] [address] [place], [place] [id number] [place] [address] [address] [place] [address] [facility] URGENT CARE/SPECIALTIES Additional Instructions: Seguimiento con el dentista maana para evaluacin adicional y tratamiento. aplicar el oragel miriam se indica en la receta sobre la lcera. Avise o llame si monzon condicin se empeora antes de la rosa elena. Regresa aqui si peor o no mejor. GOLD GARCIA PA-C Aug 03, 2016 10:50
== END 2016-08-03 09:28 | disposition home or self-care (01) ==
LOC: FTE 08:05
DX: K12.0 Recurrent oral aphthae (principal)
CPT/HCPCS: 99283

== ENCOUNTER 2017-01-16 15:41 | Emergency (ER) | payer BC ==
[~2017-01-16] VITALS: Ht 165.1 cm; Wt 65.0 kg
[~2017-01-16 15:41] MED LIST changes: +ORA20G7 BUCCAL
[2017-01-16 15:44] VITALS: Ht 165.1 cm; Wt 65.0 kg
[2017-01-16] MEDS ORDERED: ACETAMINOPHEN 500 MG TAB PO STA (16:05)
[2017-01-16] MEDS ORDERED: ACET500C5 PO (17:43)
--- NOTE | 2017-01-16 17:45 | RADRPT ---
PROCEDURE: RIGHT knee x-ray CLINICAL INDICATION: TRAUMA PAIN TECHNIQUE: AP, lateral and oblique views of the knee were obtained. COMPARISON: None FINDINGS: There is normal mineralization. No acute fracture or dislocation is seen. There is no joint effusion. There are no significant degenerative changes. There is no significant soft tissue swelling. IMPRESSION: Normal x-ray of the right knee. .Sathya Greco MD, MD Date Time Electronically viewed and signed by .Sathya Greco MD, on 01/16/2017 17:45 .A/
--- NOTE | 2017-01-16 17:47 | ERD ---
ER Documentation Chief Complaint Chief Complaint BIB RA FOR EVAL OF RT KNEE PAIN. PT AMBULATORY NO DEFORMITIES HPI 61-year-old male presents with right knee pain starting today. He admits to drinking today and had a brief episode of irritation in his throat. He vomited and fell forward onto his knees. He is able to ambulate. ROS All systems reviewed and are negative except as per history of present illness. Medications Home Meds Active Scripts Acetaminophen* (Tylophen*) 500 Mg Capsule, 1 CAP PO Q6H Y for PAIN AND OR ELEVATED TEMP, #15 CAP Prov:DAO PIERCE MD 01/16/17 Benzocaine* (Orajel Maximum*) 1 Applic Gel, 1 APPLIC BUCCAL BID, #1 TUB Prov:GOLD GARCIA PA-C 08/03/16 Meclizine Hcl* (Antivert*) 12.5 Mg Tab, 12.5 MG PO Q6H Y for DIZZINESS, #20 TAB Prov:CHRIS GONZALEZ MD 07/29/16 Metoclopramide Hcl* (Metoclopramide Hcl*) 10 Mg Tablet, 10 MG PO AC MEALS for 30 Days, TAB 3 Refills Prov:AGGIE ZAMORA 10/04/15 Allergies Allergies: Coded Allergies: No Known Allergy (Unverified , 03/04/16) PMhx/Soc History of Surgery: No Anesthesia Reaction: No Hx Neurological Disorder: No Hx Respiratory Disorders: No Hx Cardiac Disorders: No Hx Psychiatric Problems: Yes (depression) Hx Miscellaneous Medical Probl: No Hx Alcohol Use: Yes (beer daily; no intake x1mo) Hx Substance Use: No (previous 2yrs ago) Hx Tobacco Use: No Physical Exam Vitals Vital Signs Date Time Temp Pulse Resp B/P Pulse Ox O2 Delivery O2 Flow Rate FiO2 01/16/17 15:44 98.1 110 19 103/53 100 Physical Exam Const: [] Alert, [id number]. Travel. Head: Atraumatic Eyes: Normal Conjunctiva ENT: Normal External Ears, Nose and Mouth. Neck: Full range of motion..~ No meningismus. Resp: Clear to auscultation bilaterally Cardio: Regular rate and rhythm, no murmurs Abd: Soft, non tender, non distended. Normal bowel sounds Skin: No petechiae or rashes Back: No midline or flank tenderness Ext: No cyanosis, or edema. Tenderness over the right knee diffusely without deformities, patient is ambulatory there is no calf swelling or Homans sign. Is no bleeding or lacerations. Neur: Awake and alert Psych: Normal Mood and Affect Results 24 hrs Current Medications Medications (Trade) Dose Ordered Sig/Rosalia Route PRN Reason Start Time Stop Time Status Last Admin Dose Admin Acetaminophen (Tylenol Tab) 500 mg ONCE STAT PO 01/16/17 16:05 01/16/17 16:06 DC 01/16/17 16:32 Procedures/MDM X-ray right knee 3V Interpreted by me: Bones: [No fracture] Joints: [No dislocation] Foreign body: [None]. Impression-chronic degenerative changes of the right knee. Patient presents with right knee pain after drinking alcohol today and falling forward. Patient appears to have a right knee contusion. He is amatory previous given Tylenol here and will be treated with Tylenol home and primary care follow-up and return precautions. Is no evidence of septic arthritis, fracture, dislocation, signs to suggest DVT, additional complications. [facility] will be [facility]. The patient was stable with no new complaints during the ER course. Clinically, there is no current evidence to suggest meningitis, sepsis, acute abdomen, pneumonia, acute coronary syndrome, pulmonary embolism, or any other emergent condition appearing to require further evaluation or hospitalization. The patient should certainly return for any new or worsening symptoms per the aftercare instructions. They should otherwise follow-up with her primary care doctor for reevaluation this week. Departure Diagnosis: Primary Impression: Knee injury Encounter type: initial encounter Laterality: right Qualified Code: S89.91XA - Injury of right knee, initial encounter Condition: Stable Patient Instructions: Knee Pain, Uncertain Cause [facility] Usted se l[place] hecho un examen mdico de control que le indica que no est en fidel condicin que requiera tratamiento urgente en el Departamento de Emergencia. Un estudio ms profundo y el tratamiento de monzon condicin pueden esperar sin ningn riesgo hasta que usted sea atendida/o en el consultorio de monzon mdico o fidel cl lizzeth. Es responsabilidad suya arreglar fidel rosa elena para el seguimiento del julee. MANEJO DE CONDICIONES NO URGENTES EN EL FUTURO 1) Si usted tiene un mdico de atencin primaria: Usted debera llamar a monzon mdico de atencin primaria antes de venir al departamento de emergencia. Despus de las horas de consultorio, monzon doctor o monzon asociado/a est disponible por telfono. El mdico o enfermero de bert en el servicio telefnico puede asesorarle por kishan medio para atender el problema, o julee contrario se puede programar fidel rosa elena. 2) Si usted no tiene un mdico de atencin primaria: Llame al mdico o clnica de referencia que aparece abajo rossy las horas de consultorio para hacer fidel rosa elena para que le vean. CLINICAS: [facility] [phone] [facility] [phone] [address] [facility]. [facility] [phone] [address] [facility] [phone] [facility]. [facility] [phone] [id number] [facility]. [phone] Additional Instructions: X RAY NORMAL. DAO PIERCE MD Jan 16, 2017 17:47
== END 2017-01-16 17:57 | disposition home or self-care (01) ==
LOC: FTE 15:41
DX: S89.91XA Unspecified injury of right lower leg, initial encounter (principal); W18.39XA Other fall on same level, initial encounter; Y92.9 Unspecified place or not applicable
CPT/HCPCS: 73562; 99283; Z7610

== ENCOUNTER 2017-06-02 00:08 | Inpatient (IN) | END 2017-06-17 18:15 | DRG 871 ==

== ENCOUNTER 2017-07-09 12:52 | Emergency (ER) | END 2017-07-09 15:45 | disposition home or self-care (01) ==

== ENCOUNTER 2017-07-23 17:35 | Emergency (ER) | END 2017-07-23 23:00 | disposition home or self-care (01) ==

== ENCOUNTER 2018-08-16 15:24 | Emergency (ER) | payer BC ==
[~2018-08-16] VITALS: Ht 165.1 cm; Wt 70.0 kg
[~2018-08-16 15:24] MED LIST changes: +IBUP-1542 PO; +LEVE-5 PO; -MECL12.574 PO; -METO10TA96 PO; -ORA20G7 BUCCAL
[2018-08-16 15:25] VITALS: Ht 165.1 cm; Wt 70.0 kg
[2018-08-16] MEDS ORDERED: LEVETIRACETAM 1000 MG (PMX) 100 ML IVPB STA (15:34)
--- NOTE | 2018-08-16 15:37 | ERD ---
ER Documentation Chief Complaint Chief Complaint HPI This is a 62-year-old male who presented initially as a Carl Gimenez for witnessed barb dove in the field. History is limited as patient was postictal, on my initial evaluation the patient appeared confused. However he could remember his name and date of . He stated that he does have a history of drinking alcohol, but denies recent use, denies any other drug use. He denies fever. ROS All systems reviewed and are negative except as per history of present illness. Medications Home Meds Reported Medications Multivitamins* (Theragran*) 1 Tab Tab, 1 TAB PO DAILY, TAB 08/16/18 Thiamine* (Vitamin B-1*) 100 Mg Tablet, 100 MG PO DAILY, TAB 08/16/18 Folic Acid* (Folic Acid*) 1 Mg Tablet, 1 MG PO DAILY, TAB 08/16/18 Discontinued Scripts Ibuprofen* (Motrin*) 600 Mg Tab, 600 MG PO Q6, #30 TAB Prov:ROSEY TELLEZ 07/23/17 Levetiracetam* (Keppra*) 500 Mg Tablet, 500 MG PO BID, #60 TAB Prov:JOY GOLDSTEIN MD 07/09/17 Allergies Allergies: Coded Allergies: No Known Allergy (Unverified , 08/16/18) PMhx/Soc Medical and Surgical Hx: pt denies Surgical Hx, Unable to obtain History of Surgery: No Anesthesia Reaction: No Hx Neurological Disorder: No Hx Respiratory Disorders: No Hx Cardiac Disorders: No Hx Psychiatric Problems: Yes (Depression) Hx Miscellaneous Medical Probl: Yes (DM) Hx Alcohol Use: Yes Hx Substance Use: Yes (alcohol abuse) Hx Tobacco Use: No FmHx Family History: No diabetes Physical Exam Vitals Vital Signs Date Temp Pulse Resp B/P (MAP) Pulse Ox O2 O2 Flow FiO2 Time Delivery Rate 08/16/18 77 16 115/86 97 Room Air 17:42 (96) 08/16/18 97.5 96 16 145/95 95 15:25 (112) Physical Exam Const: Disheveled appearing, somnolent, but easily arousable Head: Atraumatic Eyes: Normal Conjunctiva ENT: Normal External Ears, Nose and Mouth. Neck: Full range of motion. No meningismus. Resp: Clear to auscultation bilaterally, no wheezes rales or rhonchi Cardio: Regular rate and rhythm, no murmurs Abd: Soft, non tender, non distended. Normal bowel sounds Skin: No petechiae or rashes Back: No midline or flank tenderness Ext: No cyanosis, or edema Neur: Somnolent alert and oriented x2 Psych: Unable to assess Result Diagram: 08/16/18 1545 08/16/18 1843 Results 24 hrs Laboratory Tests Test 08/16/18 15:45 08/16/18 15:51 08/16/18 17:49 08/16/18 18:43 White Blood Count 14.1 10^3/ul Red Blood Count 4.68 10^6/ul Hemoglobin 13.2 g/dl Hematocrit 40.2 % Mean Corpuscular 85.9 fl Volume Mean Corpuscular 28.2 pg Hemoglobin Mean Corpuscular 32.8 g/dl Hemoglobin Concent Red Cell Distribution 15.1 % Width Platelet Count 266 10^3/UL Mean Platelet Volume 9.9 fl Immature Granulocytes 0.400 % % Neutrophils % % Segmented Neutrophils 41 % % (Manual) Lymphocytes % % Lymphocytes % 23 % (Manual) Monocytes % % Monocytes % (Manual) 13 % Eosinophils % % Eosinophils % 23 % (Manual) Basophils % % Nucleated Red Blood 0.0 /100WBC Cells % Immature Granulocytes 0.050 10^3/ul # Neutrophils # 10^3/ul Lymphocytes (Manual) 3.2 10^3/ul Lymphocytes # 10^3/ul Monocytes # 10^3/ul Monocytes # (Manual) 1.8 10^3/ul Eosinophils # 10^3/ul Basophils # 10^3/ul Nucleated Red Blood 10^3/ul Cells # Platelet Estimate NORMAL Giant Platelets 1 % Poikilocytosis 1+ Macrocytosis 1+ Prothrombin Time 13.9 Sec Prothrombin Time 1.1 Ratio INR International 1.06 Normalized Ratio Sodium Level 138 mmol/L 141 mmol/L Potassium Level 3.7 mmol/L 3.7 mmol/L Chloride Level 102 mmol/L 108 mmol/L Carbon Dioxide Level 19 mmol/L 26 mmol/L Anion Gap 17 7 Blood Urea Nitrogen 7 mg/dl 6 mg/dl Creatinine 0.58 mg/dl 0.53 mg/dl Est Glomerular > 60 mL/min > 60 mL/min Filtrat Rate mL/min Glucose Level 94 mg/dl 95 mg/dl Calcium Level 9.0 mg/dl 8.5 mg/dl Total Bilirubin 0.6 mg/dl Direct Bilirubin 0.00 mg/dl Indirect Bilirubin 0.6 mg/dl Aspartate Amino 38 IU/L Transf (AST/SGOT) Alanine 20 IU/L Aminotransferase (ALT /SGPT) Alkaline Phosphatase 99 IU/L Troponin I < 0.012 ng/ml Total Protein 7.7 g/dl Albumin 4.3 g/dl Globulin 3.40 g/dl Albumin/Globulin 1.26 Ratio Ethyl Alcohol Level 19.0 mg/dl Bedside Glucose 85 mg/dL Bedside Urine pH 6.0 (LAB) Bedside Urine Protein Trace (LAB) Bedside Urine Glucose Negative (UA) Bedside Urine Ketones Negative (LAB) Bedside Urine Blood Negative Bedside Urine Nitrite Negative (LAB) Bedside Urine Trace Leukocyte Esterase (L Current Medications Medications Dose Sig/Rosalia Start Time Status Last (Trade) Ordered Route PRN Stop Time Admin Dose Reason Admin 100 ml @ ONCE STAT 08/16/18 DC 08/16/18 Levetiracetam 400 mls/hr IVPB 15:34 08/16/18 16:31 15:48 Sodium 1,400 ml ONCE ONCE 08/16/18 DC 08/16/18 Chloride IV* 17:00 08/16/18 16:30 (NS) 17:01 Procedures/MDM 60-year-old male presents for a seizure episode. Unknown if seizure is substance related, patient had been found initially as a Carl Gimenez, plan is for work-up including CT brain, as well as labs and drug screen. 7:13 PM: Patient CT brain returned with no acute findings, patient recovered from his postictal state, social work was consulted to evaluate the patient, given history of homelessness, initially he had a gap acidosis which I suspect most likely was related to volume depletion in the seizure, after fluids, his gap closed, patient is medically stable for discharge home. At discharge she was in no distress. Departure Diagnosis: Primary Impression: Seizure Additional Impression: Seizure disorder Condition: Stable JOY LARA MD Aug 16, 2018 15:37
[2018-08-16] MEDS ORDERED: MULTI PO (16:59)
[2018-08-16] MEDS ORDERED: THIA100T56 PO (16:59)
[2018-08-16] MEDS ORDERED: FOLI-49 PO (16:59)
[2018-08-16] MEDS ORDERED: SODIUM CHLORIDE 0.9% 1L BAG IV* ONE (17:00)
[2018-08-16 23:02] VITALS: BP 90/62; PULSE 66; RESP 18
== END 2018-08-16 23:10 | disposition home or self-care (01) ==
LOC: E/R 15:24
DX: G40.909 Epilepsy, unspecified, not intractable, without status epilepticus (principal); E11.9 Type 2 diabetes mellitus without complications; R06.02 Shortness of breath
CPT/HCPCS: 36415; 70450; 71045; 80048; 80053; 80307; 81003; 82962; 84484; 85025; 85610; 93005; 96374; 99285; J1953; J7030; Z7610